=== PATIENT | female | born 1940 | race Caucasian/White ===

== ENCOUNTER 2017-02-04 10:16 | Inpatient (IN) | payer BC ==
[~2017-02-04] VITALS: Ht 162.6 cm; Wt 89.4 kg
[2017-03-10] MEDS ORDERED: PRAVACHOL80 MG PO (08:31)
[2017-03-10] MEDS ORDERED: JANUVIA25 M1 PO (08:32)
[2017-03-10] MEDS ORDERED: ELAVIL100 MG PO (08:32)
[2017-03-10] MEDS ORDERED: NORVASC5 MG PO (08:33)
[2017-03-10] MEDS ORDERED: ALDACTONE25 MG PO (08:33)
[2017-03-10] MEDS ORDERED: METFORMIN HCL1000 MG PO (08:34)
[2017-03-10] MEDS ORDERED: GLUCOTROL10 MG PO (08:34)
[2017-03-10] MEDS ORDERED: PREMARIN0.625 MG PO (08:34)
[2017-03-10] MEDS ORDERED: ZETIA10 MG PO (08:35)
[2017-03-10] MEDS ORDERED: LASIX20 MG PO (08:35)
[2017-03-10] MEDS ORDERED: CELEXA40 MG PO (08:35)
[2017-03-10] MEDS ORDERED: ASPIRIN81 M2 PO (08:37)
[2017-03-10] MEDS ORDERED: VITAMIN E400 UNIT PO (08:37)
[2017-03-10] MEDS ORDERED: NEXIUM20 MG PO (08:38)
[2017-03-10] MEDS ORDERED: IRON325 M1 PO (08:39)
[2017-03-10] MEDS ORDERED: VITAMIN D32000 UNI1 PO (08:39)
[2017-03-10] MEDS ORDERED: VITAMIN B12 PO (08:39)
[2017-03-10] MEDS ORDERED: MICRO-K10 ME2 PO (08:40)
[2017-03-10] MEDS ORDERED: OXYCODONE-ACET1 EACH PO (08:41)
[2017-03-10] MEDS ORDERED: MAGNESIUM250 MG PO (08:41)
[2017-03-11 08:28] LABS: POINT-OF-CARE METER ID UU14174212
[2017-03-11 14:06] LABS: POINT-OF-CARE METER ID UU13113675
[2017-03-11 16:00] VITALS: BP 140/65
[2017-03-11 16:50] LABS: POINT-OF-CARE METER ID UU14149397
[2017-03-11 19:32] VITALS: BP 134/65
[2017-03-11 21:20] LABS: POINT-OF-CARE METER ID UU14149397
[2017-03-11 23:47] VITALS: BP 127/59
[2017-03-12 03:43] VITALS: BP 120/58
[2017-03-12 04:00] VITALS: BP 120/58
[2017-03-12 06:45] LABS: ANION GAP 7 MEQ/L (2-14); CHLORIDE 102 MEQ/L (99-109); GFR ESTIMATE (CALCULATED) > 59 mL/min/; GLUCOSE 139 mg/dL (70-99); POTASSIUM 4.5 MEQ/L (3.7-5.4); SAMPLE HEMOLYSIS CHECK 0; SAMPLE ICTERIC CHECK 0; SAMPLE LIPEMIA CHECK 0; SODIUM 135 MEQ/L (136-147); UREA NITROGEN (BUN) 9 mg/dL (9-23)
[2017-03-12 07:10] LABS: POINT-OF-CARE METER ID UU14117124
[2017-03-12 07:49] VITALS: BP 124/58
[2017-03-12 12:33] VITALS: BP 128/61
[2017-03-12 12:47] LABS: POINT-OF-CARE METER ID UU14117124
[2017-03-12 16:19] VITALS: BP 160/73
[2017-03-12 16:56] LABS: POINT-OF-CARE METER ID UU14149397
[2017-03-12 21:51] LABS: POINT-OF-CARE METER ID UU14117124
[2017-03-12 23:32] VITALS: BP 139/65
[2017-03-13 04:20] VITALS: BP 140/72
[2017-03-13 06:24] LABS: POINT-OF-CARE METER ID UU14117124
[2017-03-13 08:19] VITALS: BP 136/68
[2017-03-13 10:59] LABS: POINT-OF-CARE METER ID UU14149397
[2017-03-13 15:55] VITALS: BP 134/60
[2017-03-13 16:24] LABS: POINT-OF-CARE METER ID UU14149397
[2017-03-13] MEDS ORDERED: OXYCODONE-ACET1 EACH PO (16:38)
[2017-03-13] MEDS ORDERED: TIZANIDINE HCL4 MG PO (16:38)
[2017-03-13 22:03] LABS: POINT-OF-CARE METER ID UU14117124
[2017-03-13 23:45] VITALS: BP 132/63
[2017-03-14 06:31] LABS: POINT-OF-CARE METER ID UU14188577
[2017-03-14 08:11] VITALS: BP 136/61
== END 2017-03-14 11:46 | disposition home or self-care (01) | DRG 460 ==
LOC: 2SOUTH 10:16 → ENRESERV 03-10 21:50 → 2SOUTH 03-11 07:52 → ENRESERV 03-11 13:45 → 2SOUTH 03-11 14:36 → 3EAST 03-11 15:38
PROVIDERS: Neurological Surgery; Physician Assistant Medical
DX: M43.17 Spondylolisthesis, lumbosacral region (principal); M51.16 Intervertebral disc disorders with radiculopathy, lumbar region; M46.90 Unspecified inflammatory spondylopathy, site unspecified; M48.061 Spinal stenosis, lumbar region without neurogenic claudication; M47.26 Other spondylosis with radiculopathy, lumbar region; I13.0 Hypertensive heart and chronic kidney disease with heart failure and stage 1 through stage 4 chronic kidney disease, or unspecified chronic kidney disease; I50.32 Chronic diastolic (congestive) heart failure; N18.3 Chronic kidney disease, stage 3 (moderate); E11.22 Type 2 diabetes mellitus with diabetic chronic kidney disease; E11.65 Type 2 diabetes mellitus with hyperglycemia; E78.5 Hyperlipidemia, unspecified; F41.9 Anxiety disorder, unspecified; D64.9 Anemia, unspecified; E66.9 Obesity, unspecified; Z68.33 Body mass index [BMI] 33.0-33.9, adult; Z79.84 Long term (current) use of oral hypoglycemic drugs; Z79.82 Long term (current) use of aspirin; Z98.1 Arthrodesis status
CPT/HCPCS: 72100; 76000; 80048; 82948; 86850; 86900; 86901; 94799; J0131; J0690; J1100; J1170; J1815; J2250; J2270; J2765; J3010; J3480